=== PATIENT | male | born 1940 | race Caucasian/White ===

== ENCOUNTER → 2020-05-03 | Outpatient (CLI) | payer MEDICARE ==
--- NOTE | 2020-05-03 11:50 | RAD ---
EXAM: Left knee, 4 views; left tibia and fibula, 2 views. HISTORY: Pain. COMPARISON: None. FINDINGS: 4 views of the left knee and 2 views of the tibia and fibula are obtained. There is tricompartment marginal spurring. There is medial and lateral compartment chondrocalcinosis. There is a small joint effusion. There is no fracture, dislocation or subluxation. There are vascular calcifications. The ankle mortise is intact. No osteochondral lesion is seen. IMPRESSION: 1. Mild osteoarthritis of the left knee with small joint effusion. 2. No acute osseous finding. Electronically signed by: Lizbeth Wang MD (05/03/2020 11:47 AM) [id number]
== END | disposition home or self-care (01) ==
LOC: RAD 11:13
PROVIDERS: ATTEND Family Medicine
DX: M17.12 Unilateral primary osteoarthritis, left knee (principal); M25.462 Effusion, left knee; M76.892 Other specified enthesopathies of left lower limb, excluding foot; M11.262 Other chondrocalcinosis, left knee
CPT/HCPCS: 73564; 73590

== ENCOUNTER → 2020-12-11 | Outpatient (CLI) | payer MEDICARE ==
--- NOTE | 2020-12-11 16:08 | RAD ---
EXAM: Left shoulder, 3 views. HISTORY: Lifting injury. COMPARISON: None. FINDINGS: 3 views of the left shoulder obtained. There is no fracture, dislocation or subluxation. Th ere is a prominent left acromial clavicular joint space which may be physiologic or the sequela of pr ior separation injury. This does not appear to be acute. There are surgical clips at the base of the left neck. IMPRESSION: 1. Minimal acromioclavicular joint osteoarthritis and prominent acromioclavicular joint space. No con vincing dislocation or acute subluxation is seen. 2. No acute fracture. Electronically signed by: Lizbeth Wang MD (12/11/2020 4:06 PM) [id number]
== END ==
LOC: RAD 15:31
PROVIDERS: ATTEND Family Medicine
DX: M19.012 Primary osteoarthritis, left shoulder (principal)
CPT/HCPCS: 73030